=== PATIENT | female | born 1990 | race Caucasian/White ===

== ENCOUNTER 2018-10-29 12:09 | Emergency (ER) | payer BC ==
[~2018-10-29] VITALS: Ht 154.9 cm; Wt 69.9 kg
[2018-10-29 12:17] VITALS: BP_SYST 146
[2018-10-29 13:29] LABS: BARBITURATE, URINE NEGATIVE (NEG <=200); BENZODIAZEPINE, URINE NEGATIVE (NEG <=150); CANNABINOID, URINE POSITIVE (NEG <=50); COCAINE, URINE NEGATIVE (NEG <=150); METHAMPHETAMINES SCREEN,URINE NEGATIVE (NEG <=500); OPIATE, URINE NEGATIVE (NEG <=100); PHENCYCLIDINE SCREEN,URINE NEGATIVE (NEG <=25); UR TRICYCLIC ANTIDEPRESSANTS NEGATIVE (NEG <=300); URINE AMPHETAMINE NEGATIVE (NEG <=500); URINE METHADONE NEGATIVE (NEG <=200); URINE OXYCODONE SCREEN NEGATIVE (NEG <=100); URINE PROPOXYPHENE SCREEN NEGATIVE (NEG <=300)
--- NOTE | 2018-10-29 15:14 | NUR ---
Patient to ER [place] [facility] to [facility] for evaluation. Side rails up. Report given to Tata EAGLE.
--- NOTE | 2018-10-29 15:20 | NUR ---
Patient reports taking Effexor ER 450 mg today which is twice her daily prescription dosage accidentally. Patient reports shakiness. Denies any HI/ SI. No other voiced complaints or injuries per patient or as noted. Will continue to monitor.
--- NOTE | 2018-10-29 15:33 | NUR ---
Called Poison Control at [phone] and spoke with Yobani. Per recommendations: Patient on medication for 3 years per Yobani hensley to monitor at home. Patient may be shaky or sleepy. MIROSLAVA Kerr notified. Will continue to monitor patient.
[2018-10-29] MEDS ORDERED: LORazepam 1 MG TABLET PO ONE (15:45)
[2018-10-29 15:48] LABS: HCG,QUAL RESULT NEGATIVE (NEGATIVE)
--- NOTE | 2018-10-29 16:16 | NUR ---
Patient given written and verbal discharge instructions and verbalizes understanding. ER ARCHITECT INTERN Kayla discussed with patient the results and treatment provided. Patient in stable condition. ID arm band removed. Rx of Ativan given. Patient educated on pain management and to follow up with PMD. Pain Scale 0. Opportunity for questions provided and answered. Medication side effect fact sheet provided.
[2018-10-29 16:17] VITALS: BP_SYST 133
== END 2018-10-29 16:17 | disposition home or self-care (01) ==
LOC: SED 12:09
DX: T43.211A Poisoning by selective serotonin and norepinephrine reuptake inhibitors, accidental (unintentional), initial encounter (principal); G25.2 Other specified forms of tremor; R03.0 Elevated blood-pressure reading, without diagnosis of hypertension; F41.9 Anxiety disorder, unspecified; F32.9 Major depressive disorder, single episode, unspecified; F12.10 Cannabis abuse, uncomplicated; F17.210 Nicotine dependence, cigarettes, uncomplicated; Z71.6 Tobacco abuse counseling; Z79.899 Other long term (current) drug therapy; Y92.89 Other specified places as the place of occurrence of the external cause
CPT/HCPCS: 80307; 81025; 84703; 99283